=== PATIENT | female | born 1940 | race Caucasian/White ===

== ENCOUNTER 2020-10-28 09:57 | Emergency (ER) | payer MEDICARE, OTHER ==
[~2020-10-28] VITALS: Ht 157.5 cm; Wt 73.6 kg
[2020-10-28 13:54] VITALS: BP 125/67
== END 2020-10-28 14:05 | disposition home or self-care (01) ==
LOC: ER 09:58
DX: S30.0XXA Contusion of lower back and pelvis, initial encounter (principal); M48.54XA Collapsed vertebra, not elsewhere classified, thoracic region, initial encounter for fracture; M54.6 Pain in thoracic spine; Z88.2 Allergy status to sulfonamides; Z88.8 Allergy status to other drugs, medicaments and biological substances; X58.XXXA Exposure to other specified factors, initial encounter; Y93.89 Activity, other specified; Y92.89 Other specified places as the place of occurrence of the external cause; Y99.8 Other external cause status
CPT/HCPCS: 70450; 72070; 72100; 72125; 72170; 99285

== ENCOUNTER 2020-12-25 08:33 | Emergency (ER) | payer OTHER ==
[~2020-12-25] VITALS: Ht 157.5 cm; Wt 70.1 kg
[2020-12-25 08:50] VITALS: BP 115/71
[2020-12-25] MEDS ORDERED: PRED20TA PO (09:08)
[2020-12-25] MEDS ORDERED: HYDR-3686 PO (09:08)
[2020-12-25] MEDS ORDERED: BETA15CR4 TOP (09:08)
[2020-12-25] MEDS ORDERED: dexamethasone 4mg tablet PO ONE ×2 (09:10)
== END 2020-12-25 09:17 | disposition home or self-care (01) ==
LOC: ER 08:33
DX: L23.7 Allergic contact dermatitis due to plants, except food (principal); Z88.2 Allergy status to sulfonamides; Z88.8 Allergy status to other drugs, medicaments and biological substances; Z79.899 Other long term (current) drug therapy
CPT/HCPCS: 99283